=== PATIENT | male | born 1980 | race Caucasian/White ===

== ENCOUNTER 2024-06-12 19:46 | Emergency (ER) | payer OTHER ==
[~2024-06-12] VITALS: Ht 175.3 cm; Wt 99.8 kg
[2024-06-12 20:14] VITALS: BP 140/99
[2024-06-12] MEDS ORDERED: Ketorolac Tromethamine 30mg Vial IM ONE (22:00)
[2024-06-12] MEDS ORDERED: TiZANidine HCl 4 MG Tab PO ONE (22:00)
[2024-06-12] MEDS ORDERED: MOBIC15 MG PO (22:58)
[2024-06-12] MEDS ORDERED: TIZA4 PO (22:58)
== END 2024-06-12 23:07 | disposition home or self-care (01) ==
LOC: ER 19:46
DX: S39.012A Strain of muscle, fascia and tendon of lower back, initial encounter (principal); M62.830 Muscle spasm of back; W22.09XA Striking against other stationary object, initial encounter; Z79.1 Long term (current) use of non-steroidal anti-inflammatories (NSAID); Z79.891 Long term (current) use of opiate analgesic
CPT/HCPCS: 72100; 96372; 99283-25; A9270; J1885